=== PATIENT | female | born 1955 | race African-American/Black ===

== ENCOUNTER 2016-05-13 19:29 | Emergency (ER) | payer OTHER ==
[~2016-05-13 19:29] MED LIST: COUMADIN PO; FAMOTIDINE PO; LOPRESSOR PO; LORTAB 7.5-5001 TAB PO
[2016-05-13 20:29] LABS: INFLUENZA A NEG (NEG)
[2016-05-13 20:30] LABS: INFLUENZA B NEG (NEG)
== END 2016-05-13 21:05 | disposition home or self-care (01) ==
LOC: CFTX 19:29
PROVIDERS: Nurse Practitioner Family
DX: J04.0 Acute laryngitis (principal); Z79.899 Other long term (current) drug therapy
CPT/HCPCS: 87651; 87804; 99283